=== PATIENT | female | born 1950 | race Caucasian/White ===

== ENCOUNTER 2017-04-09 21:46 | Inpatient (IN) | payer OTHER ==
[~2017-04-09] VITALS: Ht 167.6 cm; Wt 103.0 kg
[~2017-04-09 21:46] MED LIST: ASP325 PO; COZ25 PO; ESG PO; GLIPIZIDE ER10 M1 PO; LANTUS100 U/ML SC; LEVAQUIN250 MG PO; LIPI20 PO; LOSARTAN PO; METFORMIN HCL1000 MG PO; METOPROLOL TART25 M1 PO; MOT600 PO; ROB750 PO; SYN5 PO
[2017-04-09 21:55] VITALS: Ht 167.6 cm; Wt 103.0 kg
[2017-04-09 23:04] LABS: BASOPHIL % 0.5 % (0-2); PLATELET COUNT 257 x10^3mcL (130-400); RED CELL DISTRIBUTION WIDTH 14.5 % (11.5-14.5)
[2017-04-09] MEDS ORDERED: JANUVIA100 M1 PO (23:10)
[2017-04-09] MEDS ORDERED: ALENDRONATE SOD70 M2 PO (23:11)
[2017-04-09] MEDS ORDERED: TRAZODONE50 M1 PO (23:11)
[2017-04-09 23:21] LABS: CALCIUM 9.3 mg/dL (8.5-10.1); CARBON DIOXIDE 24.7 mmol/L (21-32); POTASSIUM SERUM 4.7 mmol/L (3.5-5.1)
[2017-04-09 23:32] LABS: microscopic required? NO
[2017-04-09 23:34] LABS: ALBUMIN 3.4 g/dL (3.4-5.0); BILIRUBIN TOTAL 0.3 mg/dL (0.20-1.00); T4(THYROXINE) 7.9 ug/dL (4.7-13.3); TOTAL PROTEIN, SERUM 6.7 g/dL (6.4-8.2)
[2017-04-09 23:37] LABS: urine erythrocyte NEGATIVE (NEGATIVE)
[2017-04-09 23:55] LABS: MAGNESIUM 1.7 mg/dL (1.8-2.4); PHOSPHOROUS 3.7 mg/dL (2.5-4.9)
[2017-04-10] VITALS (7 sets, daily range): BP systolic 123–146; BP diastolic 58–70
[2017-04-10 07:15] LABS: TOTAL IRON BINDING CAPACITY 261 ug/dL (250-450)
[2017-04-10 07:19] LABS: CALCIUM 9.1 mg/dL (8.5-10.1); CARBON DIOXIDE 25.7 mmol/L (21-32); CHLORIDE SERUM 107 mmol/L (98-107); CREATININE SERUM 0.9 mg/dL (0.6-1.0); GFR1 > 60 mL/min; GLUCOSE SERUM 143 mg/dL (74-106); IRON 29 ug/dL (50-170); MAGNESIUM 2.3 mg/dL (1.8-2.4); PHOSPHOROUS 3.9 mg/dL (2.5-4.9); POTASSIUM SERUM 4.9 mmol/L (3.5-5.1); SODIUM SERUM 143 mmol/L (136-145)
[2017-04-10 07:53] LABS: BASOPHIL % 0.5 % (0-2); PLATELET COUNT 268 x10^3mcL (130-400); RED BLOOD CELLS 3.89 M/mm3 (4.10-5.10)
[2017-04-10 07:54] LABS: RED CELL DISTRIBUTION WIDTH 14.7 % (11.5-14.5)
[2017-04-10] MEDS ORDERED: FER300 PO (13:43)
[2017-04-10] MEDS ORDERED: VITAMIN C125 MG PO (13:44)
[2017-04-11 05:42] VITALS: BP 143/61
[2017-04-11 06:52] LABS: BASOPHIL % 0.5 % (0-2); PLATELET COUNT 267 x10^3mcL (130-400); RED CELL DISTRIBUTION WIDTH 15.1 % (11.5-14.5)
[2017-04-11 08:10] LABS: CALCIUM 9.1 mg/dL (8.5-10.1); CARBON DIOXIDE 25.9 mmol/L (21-32); MAGNESIUM 1.8 mg/dL (1.8-2.4); PHOSPHOROUS 4.3 mg/dL (2.5-4.9); POTASSIUM SERUM 4.9 mmol/L (3.5-5.1)
[2017-04-11 09:05] VITALS: BP 126/55
[2017-04-11 09:50] VITALS: BP 126/55
[2017-04-11] MEDS ORDERED: XARELTO15 M1 PO (15:09)
[2017-04-11] MEDS ORDERED: MOT600 PO (15:13)
== END 2017-04-11 16:35 | disposition home or self-care (01) | DRG 308 ==
LOC: ED 21:46 → DU 23:13
PROVIDERS: Emergency Medicine; Family Medicine; Family Medicine Sports Medicine
DX: I47.1 Supraventricular tachycardia (principal); N17.0 Acute kidney failure with tubular necrosis; I82.432 Acute embolism and thrombosis of left popliteal vein; E83.42 Hypomagnesemia; E11.51 Type 2 diabetes mellitus with diabetic peripheral angiopathy without gangrene; E11.65 Type 2 diabetes mellitus with hyperglycemia; I25.10 Atherosclerotic heart disease of native coronary artery without angina pectoris; I10 Essential (primary) hypertension; M79.7 Fibromyalgia; E78.5 Hyperlipidemia, unspecified; M70.51 Other bursitis of knee, right knee; E03.9 Hypothyroidism, unspecified; D64.9 Anemia, unspecified; Z68.39 Body mass index [BMI] 39.0-39.9, adult; Z86.73 Personal history of transient ischemic attack (TIA), and cerebral infarction without residual deficits; Z79.84 Long term (current) use of oral hypoglycemic drugs; Z79.82 Long term (current) use of aspirin; Q05.9 Spina bifida, unspecified
CPT/HCPCS: 82962; 83880; A9500; J1644; J2785; J3475; J7030; Q0092